=== PATIENT | female | born 1970 | race Caucasian/White ===

== ENCOUNTER 2022-04-07 02:04 | Emergency (ER) | payer BC ==
[2022-04-07 02:11] VITALS: BP 148/92; PULSE 102; RESP 20; TEMP 98.1; BMI 20.9
== END 2022-04-07 02:41 | disposition home or self-care (01) ==
LOC: FER 02:04
DX: F41.9 Anxiety disorder, unspecified (principal)
CPT/HCPCS: 99282-25